=== PATIENT | female | born 2000 | race Caucasian/White ===

== ENCOUNTER 2023-12-03 09:56 | Outpatient (CLI) | payer OTHER, SELFPAY ==
[~2023-12-03] VITALS: Ht 154.9 cm; Wt 100.2 kg
[2023-12-03] MEDS ORDERED: PRENTAB9 PO (10:14)
[2023-12-03] MEDS ORDERED: LABE100T6 PO (10:14)
[2023-12-03] MEDS ORDERED: HOME MED LIST COMPLETE! XX SCH (10:15)
[2023-12-03 10:27] VITALS: BP 121/64
== END 2023-12-03 12:50 | disposition home or self-care (01) ==
LOC: M LDO 09:56
PROVIDERS: ATTEND Obstetrics & Gynecology
DX: O13.3 Gestational [pregnancy-induced] hypertension without significant proteinuria, third trimester (principal); Z87.59 Personal history of other complications of pregnancy, childbirth and the puerperium; Z3A.37 37 weeks gestation of pregnancy
CPT/HCPCS: 59025; G0463